=== PATIENT | female | born 2000 | race Caucasian/White ===

== ENCOUNTER → 2024-01-15 07:15 | Outpatient (REF) | payer OTHER, SELFPAY ==
[2024-01-15 09:58] LABS: Hematocrit 34.4 % (37.0-47.0); Hemoglobin 12.6 g/dL (12.0-16.0); Mean Corp Hgb Conc. 36.6 g/dL (33.0-37.0); Mean Corpuscular Hgb 31.5 pg (27.0-31.0); Mean Platelet Volume 9.8 fL (7.4-10.4); Platelet Count 164 10^3/uL (130-400); White Blood Cell Count 4.6 10^3/uL (4.8-10.8)
[2024-01-15 10:43] LABS: Blood Urea Nitrogen 13 mg/dl (7-17); Calcium 9.2 mg/dl (8.4-10.2); Carbon Dioxide 21 mmol/L (22-30); Chloride 106 mmol/L (98-107); Glucose 84 mg/dl (70-99); Potassium 4.2 mmol/L (3.5-5.1); Sodium 141 mmol/L (135-145); eGFR > 60.00
== END ==
LOC: HWLAB 07:15
PROVIDERS: ATTENDING PHYSICIAN Otolaryngology; FAMILY PHYSICIAN Nurse Practitioner Family
DX: J32.9 Chronic sinusitis, unspecified (principal); Z01.818 Encounter for other preprocedural examination
CPT/HCPCS: 36415; 80048; 85027

== ENCOUNTER → 2024-01-23 09:04 | Outpatient (REF) | payer OTHER, SELFPAY | LOC: CLAB 09:04 | PROVIDERS: ATTENDING PHYSICIAN Otolaryngology | DX: J32.0 Chronic maxillary sinusitis (principal) | CPT/HCPCS: 88304; 88311 ==

== ENCOUNTER → 2024-10-21 13:40 | Outpatient (REF) | payer OTHER, SELFPAY | LOC: CLAB 13:40 | PROVIDERS: ATTENDING PHYSICIAN Otolaryngology | DX: J32.0 Chronic maxillary sinusitis (principal); J31.0 Chronic rhinitis | CPT/HCPCS: 87070; 87205 ==